=== PATIENT | female | born 1945 | race Caucasian/White ===

== ENCOUNTER 2017-04-25 08:52 | Day surgery (SDC) | payer MEDICARE ==
--- OUTSIDE RECORDS SUMMARY | 2017-04-25 08:57 | XMS | Clinical Summary ---
:1945 Author Organization [facility] Address [address] [place] [address] Phone Care Team Providers Name Role Phone , Primary Care Provider Unavailable Allergies Not on File Current Medications Not on file Active Problems Not on file Social History Tobacco Use Types Packs/Day Years Used Date Never Assessed Sex Assigned at Date Recorded Not on file Last Filed Vital Signs Not on file Plan of Treatment Not on file Results Not on filefrom Last 3 Months
[2017-04-25] MEDS ORDERED: INFLIXIMAB IVPB SCH ×2 (09:30→09:45)
[2017-04-25] MEDS ORDERED: SODIUM CHLORIDE 0.9% IVPB SCH ×2 (09:30→09:45)
[2017-04-25] MEDS ORDERED: Acetaminophen 500 MG TAB PO SCH (09:30)
[2017-04-25] MEDS ORDERED: diphenhydrAMINE HCl 25 MG CAP PO SCH (09:30)
[2017-04-25 09:32] VITALS: BP 157/68; TEMP 98.4
[2017-04-25] MEDS ORDERED: Sodium Chloride 0.9% 20 ML ONE (12:12)
== END 2017-04-25 12:19 | disposition home or self-care (01) ==
LOC: ONC/OP 08:52
PROVIDERS: ATTEND Internal Medicine Gastroenterology
DX: K50.90 Crohn's disease, unspecified, without complications (principal)
CPT/HCPCS: 96413; 96415; A4216; J1745; J7050

== ENCOUNTER 2017-06-20 09:04 | Day surgery (SDC) | payer MEDICARE ==
[2017-06-20] MEDS ORDERED: Sodium Chloride 0.9% 20 ML ONE ×2 (09:21→09:37)
[2017-06-20 09:28] VITALS: BP 155/74; TEMP 97.5
[2017-06-20] MEDS ORDERED: Acetaminophen 500 MG TAB PO SCH (09:30)
[2017-06-20] MEDS ORDERED: diphenhydrAMINE 25 MG CAP PO SCH (09:30)
[2017-06-20] MEDS ORDERED: INFLIXIMAB IVPB SCH (09:45)
[2017-06-20] MEDS ORDERED: SODIUM CHLORIDE 0.9% IVPB SCH (09:45)
== END 2017-06-20 11:55 | disposition home or self-care (01) ==
LOC: ONC/OP 09:04
PROVIDERS: ATTEND Internal Medicine Gastroenterology
DX: K50.113 Crohn's disease of large intestine with fistula (principal); Z91.011 Allergy to milk products
CPT/HCPCS: 96413; 96415; A4216; J1745; J7050

== ENCOUNTER 2017-08-15 08:52 | Day surgery (SDC) | payer MEDICARE ==
[2017-08-15] MEDS ORDERED: diphenhydrAMINE 50 MG/ML VIAL IVP PRN (09:04)
[2017-08-15] MEDS ORDERED: Acetaminophen 500 MG TAB PO PRN (09:05)
[2017-08-15] MEDS ORDERED: Sodium Chloride 0.9% 1,000 ML IV SCH (09:15)
[2017-08-15] MEDS ORDERED: diphenhydrAMINE 50 MG/ML VIAL IVP SCH (09:15)
[2017-08-15] MEDS ORDERED: INFLIXIMAB IVPB SCH (09:15)
[2017-08-15] MEDS ORDERED: diphenhydrAMINE 25 MG CAP PO SCH (09:15)
[2017-08-15] MEDS ORDERED: ADMIXTURE FEE IVPB SCH (09:15)
[2017-08-15] MEDS ORDERED: Acetaminophen 500 MG TAB PO SCH (09:15)
[2017-08-15] MEDS ORDERED: SODIUM CHLORIDE IVPB SCH (09:15)
[2017-08-15 11:33] VITALS: BP 157/74; TEMP 97.7
== END 2017-08-15 14:46 | disposition home or self-care (01) ==
LOC: ONC/OP 08:52
PROVIDERS: ATTEND Internal Medicine Gastroenterology
DX: K50.113 Crohn's disease of large intestine with fistula (principal)
CPT/HCPCS: 96413; 96415; J1745; J7050

== ENCOUNTER 2017-10-10 08:48 | Day surgery (SDC) | payer MEDICARE ==
[2017-10-10] MEDS ORDERED: Sodium Chloride 0.9% 30 ML ONE (09:09)
== END 2017-10-10 10:08 | disposition home or self-care (01) ==
LOC: ONC/OP 08:48
PROVIDERS: ATTEND Internal Medicine Gastroenterology
DX: K50.113 Crohn's disease of large intestine with fistula (principal); Z53.8 Procedure and treatment not carried out for other reasons
CPT/HCPCS: A4216

== ENCOUNTER 2017-10-16 09:19 | Day surgery (SDC) | payer MEDICARE ==
[2017-10-16] MEDS ORDERED: Sodium Chloride 0.9% 20 ML ONE (09:35)
[2017-10-16] MEDS ORDERED: INFLIXIMAB IVPB SCH ×2 (09:45→10:00)
[2017-10-16] MEDS ORDERED: SODIUM CHLORIDE 0.9% IVPB SCH ×2 (09:45→10:00)
[2017-10-16] MEDS ORDERED: Sodium Chloride 0.9% 1,000 ML IV SCH (09:45)
[2017-10-16 09:55] VITALS: BP 165/73; TEMP 97.9
[2017-10-16] MEDS ORDERED: diphenhydrAMINE 50 MG/ML VIAL IVP SCH (10:00)
[2017-10-16] MEDS ORDERED: Acetaminophen 500 MG TAB PO SCH (10:00)
[2017-10-16] MEDS ORDERED: diphenhydrAMINE 25 MG CAP PO SCH (10:00)
[2017-10-16] MEDS ORDERED: Acetaminophen 500 MG TAB PO PRN (14:00)
[2017-10-16] MEDS ORDERED: diphenhydrAMINE 50 MG/ML VIAL IVP PRN (14:00)
== END 2017-10-16 13:36 | disposition home or self-care (01) ==
LOC: ONC/OP 09:19
PROVIDERS: ATTEND Internal Medicine Gastroenterology
DX: K50.90 Crohn's disease, unspecified, without complications (principal)
CPT/HCPCS: 96413; 96415; A4216; J1745; J7050

== ENCOUNTER 2018-12-16 09:00 | Outpatient (CLI) | payer MEDICARE | END 2018-12-16 09:01 | disposition home or self-care (01) | LOC: WCC 09:00 | PROVIDERS: ATTEND Family Medicine | DX: K50.90 Crohn's disease, unspecified, without complications (principal) | CPT/HCPCS: 97139; G0463; 99211 ==

== ENCOUNTER 2019-09-23 08:37 | Outpatient (CLI) | payer MEDICARE ==
--- NOTE | 2019-09-23 09:52 | MMO ---
Bilateral MAMMO Bilat Diag DDI+BRYAN. CLINICAL HISTORY: Patient is 74 years old and is seen for diagnostic exam and lump or thickening in the left breast. The patient has no family history of breast cancer. The patient has no personal history of cancer. The patient has a history of bilateral Implants at age 29. VIEWS: The views performed were: bilateral craniocaudal; bilateral craniocaudal with tomosynthesis; bilateral mediolateral oblique; bilateral mediolateral oblique with tomosynthesis; bilateral mediolateral; bilateral mediolateral with tomosynthesis; and bilateral Implant displaced with tomosynthesis. FILMS COMPARED: The present examination has been compared to prior imaging studies performed at [facility] on 09/23/2019, and at [facility] on 03/09/2013 and 04/23/2018. This study has been interpreted with the assistance of computer-aided detection. MAMMOGRAM FINDINGS: There are scattered fibroglandular densities. There are no suspicious masses, suspicious calcifications, or new areas of architectural distortion. There are no mammographic or sonographic abnormalities in the area of palpable concern. The patient is referred back to her clinician. Negative imaging findings should not preclude biopsy if clinical findings are suspicious. Stable appearance of bilateral breast implants. IMPRESSION: THERE IS NO MAMMOGRAPHIC EVIDENCE OF MALIGNANCY. THERE ARE NO MAMMOGRAPHIC OR SONOGRAPHIC ABNORMALITIES IN THE AREA OF PALPABLE CONCERN. THE PATIENT IS REFERRED BACK TO HER CLINICIAN. NEGATIVE IMAGING FINDINGS SHOULD NOT PRECLUDE BIOPSY IF CLINICAL FINDINGS ARE SUSPICIOUS. THE RESULTS OF THIS EXAM WERE SENT TO THE PATIENT. ACR BI-RADS Category 1 - Negative MAMMOGRAPHY NOTE: 1. A negative mammogram report should not delay a biopsy if a dominant of clinically suspicious mass is present. 2. Approximately 10% to 15% of breast cancers are not detected by mammography. 3. Adenosis and dense breasts may obscure an underlying neoplasm. Reported by: TAVON DE ANDA MD Electonically Signed: [id number]
--- NOTE | 2019-09-23 09:53 | MMO ---
Left US Breast Limited Lt. CLINICAL HISTORY: Patient is 74 years old and is seen for . The patient has a history of bilateral Implants at age 29. VIEWS: The views performed were: . FILMS COMPARED: The present examination has been compared to prior imaging studies performed at [facility] on 09/23/2019, and at [facility] [place] on 03/09/2013 and 04/23/2018. This study has been interpreted with the assistance of computer-aided detection. LEFT BREAST ULTRASOUND FINDINGS: On ultrasound, no suspicious findings are identified. IMPRESSION: THERE ARE NO SONOGRAPHIC ABNORMALITIES IN THE AREA OF PALPABLE CONCERN. THE PATIENT IS REFERRED BACK TO HER CLINICIAN. NEGATIVE IMAGING FINDINGS SHOULD NOT PRECLUDE BIOPSY IF CLINICAL FINDINGS ARE SUSPICIOUS. THE RESULTS OF THIS EXAM WERE SENT TO THE PATIENT. ACR BI-RADS Category 1 - Negative MAMMOGRAPHY NOTE: 1. A negative mammogram report should not delay a biopsy if a dominant of clinically suspicious mass is present. 2. Approximately 10% to 15% of breast cancers are not detected by mammography. 3. Adenosis and dense breasts may obscure an underlying neoplasm. Reported by: TAVON DE ANDA MD Electonically Signed: [id number]
== END 2019-09-23 08:38 | disposition home or self-care (01) ==
LOC: BICMAMMO 08:37
PROVIDERS: ATTEND Internal Medicine
DX: T85.43XA Leakage of breast prosthesis and implant, initial encounter (principal)
CPT/HCPCS: 76642; 77066; G0279

== ENCOUNTER 2020-05-19 13:12 | Outpatient (CLI) | payer MEDICARE ==
--- NOTE | 2020-05-20 08:14 | ULT ---
LIMITED ULTRASOUND LEFT BREAST: HISTORY: The patient states left breast implant nonmobile and asymmetric compared to the right side. The rayshawn ent has a history of bilateral breast implants since age 29. COMPARISON: 09/23/2019. FINDINGS: Multiple sonographic images of the left breast are obtained. Images demonstrate what appears to be a saline breast implant with linear and curvilinear echogenic areas seen throughout the region of the implant which are thought to less likely be related to areas of enfolding of the implant which are wagner ggested on mammographic evaluation. There is no mass or cystic lesion seen within the left breast. IMPRESSION: 1. BIRADS category 2, benign findings. Annual mammographic screening is recommended. 2. Given patient's history of nonmobile left breast implant which may be related contracture of the left breast implant compared to the right, consultation with plastic surgery is recommended for furth er evaluation. POS: OFF
--- NOTE | 2020-05-20 08:14 | MMO ---
Left Breast MAMMO Unilat Diag DDI LT+BRYAN. CLINICAL HISTORY: Patient is 75 years old and is seen for diagnostic exam. The patient has no family history of breast cancer. The patient has no personal history of cancer. The patient has a history of bilateral Implants at age 29. VIEWS: The views performed were: left craniocaudal with tomosynthesis; left mediolateral oblique with tomosynthesis; and left mediolateral with tomosynthesis. FILMS COMPARED: The present examination has been compared to prior imaging studies performed at [facility] on 09/23/2019 and 05/19/2020, and at [facility] on 04/23/2018. This study has been interpreted with the assistance of computer-aided detection. MAMMOGRAM FINDINGS: There are scattered fibroglandular densities. Finding 1: There are stable benign appearing calcifications seen in the left breast. Finding 2: Normal implant is present. There are no suspicious masses, suspicious calcifications, or new areas of architectural distortion. IMPRESSION: FINDING 1: STABLE CALCIFICATIONS IN THE LEFT BREAST ARE BENIGN. FINDING 2: IMPLANT FINDING IN THE LEFT BREAST IS BENIGN. PATIENT COMPLAINS OF A NON-MOBILE LEFT BREAST IMPLANT. FURTHER EVALUATION WITH PLASTIC SURGERY IS RECOMMENDED. A ROUTINE FOLLOW-UP MAMMOGRAM IN 1 YEAR IS RECOMMENDED. THE RESULTS OF THIS EXAM WERE SENT TO THE PATIENT. ACR BI-RADS Category 2 - Benign finding MAMMOGRAPHY NOTE: 1. A negative mammogram report should not delay a biopsy if a dominant of clinically suspicious mass is present. 2. Approximately 10% to 15% of breast cancers are not detected by mammography. 3. Adenosis and dense breasts may obscure an underlying neoplasm. Reported by: YOLA BEAL MD Electonically Signed: [id number]
== END 2020-05-19 13:13 | disposition home or self-care (01) ==
LOC: BICMAMMO 13:12
PROVIDERS: ATTEND Internal Medicine
DX: N63.20 Unspecified lump in the left breast, unspecified quadrant (principal); R92.1 Mammographic calcification found on diagnostic imaging of breast; Z98.82 Breast implant status
CPT/HCPCS: 76642; 77065; G0279

== ENCOUNTER 2020-09-01 09:51 | Outpatient (CLI) | payer MEDICARE ==
[2020-09-01] MEDS ORDERED: Iopamidol-370 76% 500 ML 1 ML ONE (17:53)
== END 2020-09-01 09:52 | disposition home or self-care (01) ==
LOC: BICCT 09:51
PROVIDERS: ATTEND Physician Assistant Medical
DX: K50.10 Crohn's disease of large intestine without complications (principal); D50.9 Iron deficiency anemia, unspecified; R63.4 Abnormal weight loss; Z93.3 Colostomy status; K80.20 Calculus of gallbladder without cholecystitis without obstruction; K82.8 Other specified diseases of gallbladder; R91.8 Other nonspecific abnormal finding of lung field
CPT/HCPCS: 71260; 74177; 82565; Q9967

== ENCOUNTER 2021-06-07 09:15 | Outpatient (CLI) | payer MEDICARE | END 2021-06-07 09:16 | disposition home or self-care (01) | LOC: BICMAMMO 09:15 | PROVIDERS: ATTEND Internal Medicine Medical Oncology | DX: Z12.31 Encounter for screening mammogram for malignant neoplasm of breast (principal); Z13.820 Encounter for screening for osteoporosis; Z78.0 Asymptomatic menopausal state; M81.0 Age-related osteoporosis without current pathological fracture | CPT/HCPCS: 77063; 77067; 77080 ==

== ENCOUNTER 2021-08-22 16:04 | Outpatient (CLI) | payer MEDICARE | END 2021-08-22 16:05 | disposition home or self-care (01) | LOC: BICULT 16:04 | PROVIDERS: ATTEND Internal Medicine Nephrology | DX: I12.9 Hypertensive chronic kidney disease with stage 1 through stage 4 chronic kidney disease, or unspecified chronic kidney disease (principal); N18.30 Chronic kidney disease, stage 3 unspecified | CPT/HCPCS: 76770 ==

== ENCOUNTER 2021-11-11 20:03 | Emergency (ER) | payer MEDICARE ==
[~2021-11-11 20:03] MED LIST: Iopamidol-370 76% 500 ML 1 ML ONE
[2021-11-11 21:28] LABS: #Basophils 0.1 thou/uL (0.0-0.2); #Eosinphils 0.6 thou/uL (0.0-0.7); #Lymphocytes 3.5 thou/uL (1.20-3.40); #Monocytes 0.9 thou/uL (0.11-0.59); #Neutrophils 4.4 thou/uL (1.40-6.50); %Basophils 0.8 % (0.0-1.0); %Eosinophils 5.8 % (0.0-10.0); %Lymphocytes 36.8 % (21.0-51.0); %Monocytes 9.8 % (0.0-10.0); %Neutrophils 46.8 % (42.0-75.0); Hemoglobin 9.3 g/dL (12.0-16.0); Mean Corpuscular HGB CONC 31.7 g/dL (32.0-36.0); Mean Corpuscular Hemoglobin 28.6 pg (27.0-31.0); Mean Corpuscular Volume 90.3 fL (78.0-98.0); Mean Platelet Volume 8.2 fL (7.4-10.4); Platelet Count 301 thou/uL (130-400); RBC Distribution Width 17.5 % (11.5-14.5); Red Blood Cell (RBC) Count 3.27 mill/uL (4.20-5.40); White Blood Cell (WBC) Count 9.5 thou/uL (4.8-10.8)
[2021-11-11 21:52] LABS: ALT (SGPT) 7 U/L (8-55); AST (SGOT) 13 U/L (5-34); Alkaline Phosphatase 49 U/L (40-110); Anion Gap 12 mmol/L (10-20); BUN (Urea Nitrogen) 24 mg/dL (9.8-20.1); Bilirubin, Total 0.2 mg/dL (0.2-1.2); Calc. Creatinine Clearance 0 mL/min (70-130); Calcium 9.6 mg/dL (7.8-10.44); Carbon Dioxide 24 mmol/L (23-31); Chloride 107 mmol/L (98-107); Globulin 2.7 g/dL (2.4-3.5); Glucose 98 mg/dL (83-110); Lipase 43 U/L (8-78); Potassium 4.3 mmol/L (3.5-5.1); Protein, Total 6.7 g/dL (5.8-8.1); Sodium 139 mmol/L (136-145)
[2021-11-11 23:56] LABS: Bacteria/HPF None Seen HPF (None Seen); Bilirubin Negative (Negative); Blood, Urine Negative (Negative); Clarity Clear (Clear); Glucose, Urine (Dipstick) Normal (Negative); Ketone, Urine Negative (Negative); Leukocyte 75 Leu/uL (Negative); Nitrite Negative (Negative); Protein, Urine (Dipstick) Negative (Neg-Trace); RBC/HPF None Seen HPF (0-3); Specific Gravity, Urine 1.015 (1.002-1.036); Squamous Epithelial None Seen HPF (0-3); Urobilinogen Normal mg/dL (Less than 2); pH, Urine 6.5 (5.0-9.0)
== END 2021-11-12 01:21 | disposition home or self-care (01) ==
LOC: ERS 20:03
DX: N39.0 Urinary tract infection, site not specified (principal); I11.0 Hypertensive heart disease with heart failure; I50.9 Heart failure, unspecified
CPT/HCPCS: 74177; 80053; 81003; 81015; 83605; 83690; 85025; 87045; 87046; 87086; 87324; 87427; 87449; 93005; Q9967

== ENCOUNTER 2022-08-30 08:30 | Outpatient (CLI) | payer MEDICARE | END 2022-08-30 08:31 | disposition home or self-care (01) | LOC: NM 08:30 | PROVIDERS: ATTEND Psychiatry & Neurology Neurology | DX: F03.B18 Unspecified dementia, moderate, with other behavioral disturbance (principal) | CPT/HCPCS: 78803; A9584 ×2 ==

== ENCOUNTER 2022-09-11 09:09 | Outpatient (CLI) | payer MEDICARE ==
[2022-09-11] MEDS ORDERED: Magnevist 469MG/ML 20 ML VIAL ONE (11:20)
== END 2022-09-11 09:10 | disposition home or self-care (01) ==
LOC: PET 09:09
PROVIDERS: ATTEND Psychiatry & Neurology Neurology
DX: F03.B18 Unspecified dementia, moderate, with other behavioral disturbance (principal); G03.9 Meningitis, unspecified; F02.83 Dementia in other diseases classified elsewhere, unspecified severity, with mood disturbance; I67.82 Cerebral ischemia
CPT/HCPCS: 70553; 78803; A9552

== ENCOUNTER 2022-10-29 15:43 | Observation (INO) | payer MEDICARE ==
[~2022-10-29 15:43] MED LIST changes: -Iopamidol-370 76% 500 ML 1 ML ONE; +Iopamidol-370 76% 500 ML MDV (1 ML CHARGE) ONE
[2022-10-29 16:52] LABS: #Lymphocytes 0.6 thou/uL (1.20-3.40); #Monocytes 0.1 thou/uL (0.11-0.59); #Neutrophils 7.6 thou/uL (1.40-6.50); %Basophils 0.1 % (0.0-1.0); %Eosinophils 0.3 % (0.0-10.0); %Lymphocytes 7.5 % (21.0-51.0); %Monocytes 1.5 % (0.0-10.0); %Neutrophils 90.7 % (42.0-75.0); Mean Corpuscular HGB CONC 32.4 g/dL (32.0-36.0); Mean Corpuscular Hemoglobin 31.1 pg (27.0-31.0); Mean Corpuscular Volume 95.9 fl (78.0-98.0); Mean Platelet Volume 7.8 fL (7.4-10.4); Platelet Count 356 10x3/uL (130-400); RBC Distribution Width 11.5 % (11.5-14.5); Red Blood Cell (RBC) Count 4.18 mill/uL (4.20-5.40); White Blood Cell (WBC) Count 8.4 10x3/uL (4.8-10.8)
[2022-10-29 17:12] LABS: ALT (SGPT) Less than 7 U/L (8-55); AST (SGOT) 14 U/L (5-34); Albumin 4.2 g/dL (3.4-4.8); Alkaline Phosphatase 77 U/L (40-110); Anion Gap 12 mmol/L (10-20); BUN (Urea Nitrogen) 18 mg/dL (9.8-20.1); Bilirubin, Total 0.4 mg/dL (0.2-1.2); Calc. Creatinine Clearance 0 mL/min (70-130); Calcium 9.7 mg/dL (7.8-10.44); Carbon Dioxide 29 mmol/L (23-31); Chloride 97 mmol/L (98-107); Estimated GFR 56; Globulin 3.1 g/dL (2.4-3.5); Glucose 151 mg/dL (83-110); Lipase 25 U/L (8-78); Potassium 3.7 mmol/L (3.5-5.1); Protein, Total 7.3 g/dL (5.8-8.1); Sodium 134 mmol/L (136-145)
[2022-10-29 18:26] LABS: Bacteria/HPF None Seen HPF (None Seen); Bilirubin Negative (Negative); Blood, Urine Negative (Negative); Clarity Clear (Clear); Glucose, Urine (Dipstick) 30 mg/dL (Negative); Ketone, Urine Negative (Negative); Leukocyte 25 Leu/uL (Negative); Nitrite Negative (Negative); Protein, Urine (Dipstick) Negative (Neg-Trace); RBC/HPF 0-3 HPF (0-3); Specific Gravity, Urine 1.009 (1.002-1.036); Squamous Epithelial None Seen HPF (0-3); Urobilinogen Normal mg/dL (Less than 2); WBC/HPF 0-3 HPF (0-3)
[2022-10-29] MEDS ORDERED: Ondansetron PF 4 MG/2 ML Vial IVP PRN (21:14)
[2022-10-29] MEDS ORDERED: Acetaminophen 325 MG TAB PO PRN (21:14)
[2022-10-29] MEDS ORDERED: Sodium Chloride 0.9% 1,000 ML IV SCH (21:15)
[2022-10-29] MEDS: methylPREDNISolone Sod Succ 40 MG VIAL IVP SCH (23:30)
[2022-10-30] MEDS: methylPREDNISolone Sod Succ 40 MG VIAL IVP SCH ×3 (05:10→21:28)
[2022-10-30 07:13] LABS: #Lymphocytes 0.9 thou/uL (1.20-3.40); #Monocytes 0.2 thou/uL (0.11-0.59); #Neutrophils 5.8 thou/uL (1.40-6.50); %Basophils 0.2 % (0.0-1.0); %Eosinophils 0.2 % (0.0-10.0); %Lymphocytes 12.8 % (21.0-51.0); %Monocytes 2.4 % (0.0-10.0); %Neutrophils 84.5 % (42.0-75.0); Hemoglobin 12.6 g/dL (12.0-16.0); Mean Corpuscular HGB CONC 32.2 g/dL (32.0-36.0); Mean Corpuscular Hemoglobin 30.9 pg (27.0-31.0); Mean Corpuscular Volume 95.9 fl (78.0-98.0); Mean Platelet Volume 8.1 fL (7.4-10.4); Platelet Count 379 10x3/uL (130-400); RBC Distribution Width 11.5 % (11.5-14.5); Red Blood Cell (RBC) Count 4.09 mill/uL (4.20-5.40); White Blood Cell (WBC) Count 6.8 10x3/uL (4.8-10.8)
[2022-10-30 07:36] LABS: ALT (SGPT) 14 U/L (8-55); AST (SGOT) 12 U/L (5-34); Albumin 3.9 g/dL (3.4-4.8); Alkaline Phosphatase 73 U/L (40-110); Anion Gap 14 mmol/L (10-20); BUN (Urea Nitrogen) 18 mg/dL (9.8-20.1); Bilirubin, Total 0.5 mg/dL (0.2-1.2); Calc. Creatinine Clearance 36 mL/min (70-130); Calcium 9.5 mg/dL (7.8-10.44); Carbon Dioxide 26 mmol/L (23-31); Chloride 100 mmol/L (98-107); Estimated GFR 67; Glucose 116 mg/dL (83-110); Potassium 4.1 mmol/L (3.5-5.1); Protein, Total 6.9 g/dL (5.8-8.1); Sodium 136 mmol/L (136-145)
[2022-10-30 10:15] VITALS: BMI 18.5
[2022-10-30] MEDS: Carbidopa/Levodopa 25-100 mg Tablet PO SCH ×2 (14:27→21:28)
[2022-10-30] MEDS: Rivastigmine 1.5 MG CAP PO SCH (17:26)
[2022-10-30] MEDS ORDERED: RIVASTIGMINE TARTRATE 3 MG PO SCH (21:00)
[2022-10-31 04:50] VITALS: TEMP 98.5
[2022-10-31] MEDS: methylPREDNISolone Sod Succ 40 MG VIAL IVP SCH ×2 (05:12→14:40)
[2022-10-31 07:42] LABS: #Lymphocytes 0.9 thou/uL (1.20-3.40); #Monocytes 0.7 thou/uL (0.11-0.59); #Neutrophils 11.9 thou/uL (1.40-6.50); %Basophils 0.3 % (0.0-1.0); %Eosinophils 0.1 % (0.0-10.0); %Lymphocytes 6.8 % (21.0-51.0); %Neutrophils 87.8 % (42.0-75.0); Hemoglobin 12.7 g/dL (12.0-16.0); Mean Corpuscular HGB CONC 32.3 g/dL (32.0-36.0); Mean Platelet Volume 7.8 fL (7.4-10.4); Platelet Count 386 10x3/uL (130-400); RBC Distribution Width 11.6 % (11.5-14.5); White Blood Cell (WBC) Count 13.5 10x3/uL (4.8-10.8)
[2022-10-31 07:47] VITALS: BP 147/72
[2022-10-31 08:02] LABS: ALT (SGPT) 7 U/L (8-55); AST (SGOT) 14 U/L (5-34); Albumin 3.8 g/dL (3.4-4.8); Alkaline Phosphatase 66 U/L (40-110); Anion Gap 14 mmol/L (10-20); BUN (Urea Nitrogen) 25 mg/dL (9.8-20.1); Bilirubin, Total 0.5 mg/dL (0.2-1.2); Calc. Creatinine Clearance 34 mL/min (70-130); Calcium 9.5 mg/dL (7.8-10.44); Carbon Dioxide 25 mmol/L (23-31); Chloride 101 mmol/L (98-107); Estimated GFR 63; Globulin 2.8 g/dL (2.4-3.5); Glucose 128 mg/dL (83-110); Protein, Total 6.6 g/dL (5.8-8.1); Sodium 136 mmol/L (136-145)
[2022-10-31] MEDS: Carbidopa/Levodopa 25-100 mg Tablet PO SCH ×2 (08:15→14:38)
[2022-10-31] MEDS: Rivastigmine 1.5 MG CAP PO SCH (08:19)
[2022-10-31] MEDS ORDERED: Metoprolol Tartrate 25 MG TAB PO SCH (09:00)
[2022-10-31] MEDS ORDERED: Venlafaxine HCl XR 150 MG CAP PO SCH (09:00)
[2022-10-31] MEDS ORDERED: Pimavanserin Tartrate [Nuplazid] 34 MG Capsule PO SCH (09:00)
[2022-10-31] MEDS ORDERED: Amlodipine 5 MG TAB PO SCH (09:00)
[2022-10-31] MEDS ORDERED: PIMAVANSERIN TARTRATE 34 MG PO SCH (09:00)
[2022-10-31] MEDS ORDERED: Non-Formulary Item 1 EACH (Amlodipine Besylate [Norvasc] 2.5 MG Tablet) PO SCH (09:00)
== END 2022-10-31 17:06 | disposition home or self-care (01) ==
LOC: ERS 15:43 → T4-B 21:09
PROVIDERS: ADMIT Internal Medicine; ATTEND Internal Medicine
DX: K50.90 Crohn's disease, unspecified, without complications (principal); E87.1 Hypo-osmolality and hyponatremia; K80.20 Calculus of gallbladder without cholecystitis without obstruction; I11.0 Hypertensive heart disease with heart failure; I50.9 Heart failure, unspecified; G31.83 Neurocognitive disorder with Lewy bodies; F02.80 Dementia in other diseases classified elsewhere, unspecified severity, without behavioral disturbance, psychotic disturbance, mood disturbance, and anxiety; D50.9 Iron deficiency anemia, unspecified; Z79.899 Other long term (current) drug therapy; Z88.1 Allergy status to other antibiotic agents; Z93.3 Colostomy status
CPT/HCPCS: 36415; 74177; 76705; 80053; 81003; 81015; 83605; 83690; 85025; 86140; 96374; 96376; G0378; J2920; J7050; Q9967

== ENCOUNTER 2023-02-26 12:50 | Inpatient (IN) | payer MEDICARE ==
[2023-02-26 13:52] LABS: INR-International Normal Ratio 0.9; PTT 27.8 sec (22.9-36.1); Prothrombin Time 12.3 sec (12.0-14.7)
[2023-02-26 14:01] LABS: ALT (SGPT) Less than 7 U/L (8-55); AST (SGOT) 13 U/L (5-34); Albumin 3.5 g/dL (3.4-4.8); Alkaline Phosphatase 98 U/L (40-110); Anion Gap 12 mmol/L (10-20); BUN (Urea Nitrogen) 26 mg/dL (9.8-20.1); Bilirubin, Total 0.3 mg/dL (0.2-1.2); Calc. Creatinine Clearance 0 mL/min (70-130); Calcium 8.8 mg/dL (7.8-10.44); Carbon Dioxide 28 mmol/L (23-31); Chloride 97 mmol/L (98-107); Estimated GFR 61; Globulin 2.4 g/dL (2.4-3.5); Glucose 101 mg/dL (83-110); Potassium 3.8 mmol/L (3.5-5.1); Protein, Total 5.9 g/dL (5.8-8.1); Sodium 133 mmol/L (136-145)
[2023-02-26 14:18] LABS: #Eosinphils 0.3 thou/uL (0.0-0.7); #Monocytes 0.5 thou/uL (0.11-0.59); #Neutrophils 2.9 thou/uL (1.40-6.50); %Basophils 0.4 % (0.0-1.0); %Eosinophils 4.7 % (0.0-10.0); %Lymphocytes 30.5 % (21.0-51.0); %Monocytes 9.3 % (0.0-10.0); %Neutrophils 54.9 % (42.0-75.0); Hematocrit 39.2 % (36.0-47.0); Hemoglobin 12.6 g/dL (12.0-16.0); Mean Corpuscular HGB CONC 32.1 g/dL (32.0-36.0); Mean Corpuscular Hemoglobin 29.8 pg (27.0-31.0); Mean Corpuscular Volume 92.7 fl (78.0-98.0); Mean Platelet Volume 9.4 fL (7.4-10.4); Platelet Count 336 10x3/uL (130-400); RBC Distribution Width 13.1 % (11.5-14.5); Red Blood Cell (RBC) Count 4.23 mill/uL (4.20-5.40); White Blood Cell (WBC) Count 5.3 10x3/uL (4.8-10.8)
[2023-02-26] MEDS ORDERED: HYDROcodone/Acetaminophen 7.5/325 mg Tablet PO PRN (16:02)
[2023-02-26] MEDS ORDERED: Morphine 4 MG/ML VIAL SLOW IVP PRN (16:05)
[2023-02-26] MEDS ORDERED: hydrALAZINE 20 MG/ML VIAL SLOW IVP PRN (16:08)
[2023-02-26] MEDS ORDERED: Acetaminophen 325 MG Suppository ONE (16:09)
[2023-02-26] MEDS ORDERED: Acetaminophen 500 MG TAB ONE (16:09)
[2023-02-26] MEDS ORDERED: Morphine 2 MG/ML VIAL SLOW IVP PRN (16:13)
[2023-02-26 17:11] VITALS: BMI 14.7
[2023-02-26] MEDS: Sodium Chloride 0.9% 1,000 ML IV SCH (18:02)
[2023-02-26] MEDS: Carbidopa/Levodopa 25-100 mg Tablet PO SCH (21:17)
[2023-02-26 23:26] LABS: Hemoglobin 10.9 g/dL (12.0-16.0)
[2023-02-27] MEDS: Sodium Chloride 0.9% 1,000 ML IV SCH ×2 (05:37→17:24)
[2023-02-27 07:06] LABS: Hemoglobin 10.8 g/dL (12.0-16.0)
[2023-02-27 07:17] LABS: Anion Gap 12 mmol/L (10-20); BUN (Urea Nitrogen) 18 mg/dL (9.8-20.1); Calc. Creatinine Clearance 37 mL/min (70-130); Calcium 8.2 mg/dL (7.8-10.44); Carbon Dioxide 26 mmol/L (23-31); Chloride 101 mmol/L (98-107); Estimated GFR 80; Glucose 83 mg/dL (83-110); Potassium 3.1 mmol/L (3.5-5.1); Sodium 136 mmol/L (136-145)
[2023-02-27] MEDS: Metoprolol Tartrate 25 MG TAB PO SCH (07:18)
[2023-02-27] MEDS: Carbidopa/Levodopa 25-100 mg Tablet PO SCH ×3 (07:19→19:56)
[2023-02-27] MEDS: Rivastigmine 1.5 MG CAP PO SCH ×2 (07:19→17:24)
[2023-02-27] MEDS: Venlafaxine HCl XR 150 MG CAP PO SCH (07:19)
[2023-02-27] MEDS ORDERED: PIMAVANSERIN TARTRATE 34 MG PO SCH (09:00)
[2023-02-27 14:39] LABS: Hemoglobin 10.8 g/dL (12.0-16.0)
[2023-02-27] MEDS: Morphine 2 MG/ML VIAL SLOW IVP PRN ×3 (14:45→21:33)
[2023-02-28] MEDS: Morphine 2 MG/ML VIAL SLOW IVP PRN ×6 (03:38→23:35)
[2023-02-28] MEDS: Venlafaxine HCl XR 150 MG CAP PO SCH (09:16)
[2023-02-28] MEDS: Metoprolol Tartrate 25 MG TAB PO SCH (09:16)
[2023-02-28] MEDS: Carbidopa/Levodopa 25-100 mg Tablet PO SCH ×3 (09:16→20:18)
[2023-02-28] MEDS: Rivastigmine 1.5 MG CAP PO SCH ×2 (10:28→15:51)
[2023-02-28] MEDS: Sodium Chloride 0.9% 1,000 ML IV SCH ×2 (10:29→20:50)
[2023-02-28] MEDS ORDERED: Morphine 2 MG/ML VIAL SLOW IVP SCH (13:30)
[2023-03-01] MEDS: Morphine 2 MG/ML VIAL SLOW IVP PRN ×3 (04:43→11:57)
[2023-03-01 07:44] VITALS: BP 139/69; TEMP 97.3
[2023-03-01] MEDS: Carbidopa/Levodopa 25-100 mg Tablet PO SCH ×2 (09:23→12:20)
[2023-03-01] MEDS: Rivastigmine 1.5 MG CAP PO SCH (09:23)
[2023-03-01] MEDS: Metoprolol Tartrate 25 MG TAB PO SCH (09:23)
[2023-03-01] MEDS: Venlafaxine HCl XR 150 MG CAP PO SCH (09:24)
[2023-03-01] MEDS: Sodium Chloride 0.9% 1,000 ML IV SCH (12:20)
== END 2023-03-01 13:41 | disposition hospice, inpatient (51) | DRG 386 ==
LOC: ERS 12:50 → T4-A 15:37
PROVIDERS: ADMIT Internal Medicine; ATTEND Internal Medicine
DX: K50.811 Crohn's disease of both small and large intestine with rectal bleeding (principal); E44.0 Moderate protein-calorie malnutrition; Z68.1 Body mass index [BMI] 19.9 or less, adult; Z66 Do not resuscitate; Z51.5 Encounter for palliative care; I11.0 Hypertensive heart disease with heart failure; I50.9 Heart failure, unspecified; F03.90 Unspecified dementia, unspecified severity, without behavioral disturbance, psychotic disturbance, mood disturbance, and anxiety; G20 Parkinson's disease; F02.80 Dementia in other diseases classified elsewhere, unspecified severity, without behavioral disturbance, psychotic disturbance, mood disturbance, and anxiety; Z96.641 Presence of right artificial hip joint; F32.A Depression, unspecified; G31.83 Neurocognitive disorder with Lewy bodies; G89.29 Other chronic pain; L98.499 Non-pressure chronic ulcer of skin of other sites with unspecified severity; Z88.1 Allergy status to other antibiotic agents; Z88.8 Allergy status to other drugs, medicaments and biological substances; Z79.899 Other long term (current) drug therapy
CPT/HCPCS: 36415; 72170; 80048; 80053; 84484; 85018; 85025; 85610; 85730; 86850; 86900; 86901; 93005; 97139; J2272; J7050